=== PATIENT | female | born 1965 | race Caucasian/White ===

== ENCOUNTER → 2018-05-12 | Day surgery (SDC) | payer BC ==
[~2018-05-12] MED LIST: Lactated Ringers 1,000 ML IV SCH; Propofol 200 MG/20 ML SDV IV ONE
[2018-05-12 10:25] VITALS: BP 115/77
--- NOTE | 2018-05-12 10:52 | OR ---
DATE OF OPERATION: 05/12/2018 PREOPERATIVE DIAGNOSIS: CHRONIC GASTROESOPHAGEAL REFLUX DISEASE WITH GLOBUS SENSATION. POSTOPERATIVE DIAGNOSIS: CHRONIC GASTROESOPHAGEAL REFLUX DISEASE WITH GLOBUS SENSATION. SURGEON: Mata Ocasio MD PROCEDURE: ESOPHAGOGASTRODUODENOSCOPY WITH BIOPSIES X5, PEMA. ANESTHESIA: [employer] due to chronic GERD. COMPLICATIONS: None. SPECIMEN: 1. Fundal biopsy x2. 2. Fundal polyp. 3. PEMA. 4. Distal esophageal biopsy x2. FINDINGS: 1. Full-length EGD. 2. Status post gastric bypass with Pj-en-Y. 3. Benign adenomatous fundal polyps. 4. Chronic active gastritis, fundus. 5. GERD with short-segment Low's changes without obvious esophagitis. RECOMMENDATIONS: The patient will be placed on proton pump therapy and monitored pending path reports. INDICATIONS: The patient has apparently been having some ongoing issues with reflux not controlled and now having a globus sensation in her throat. Ronel sent her for EGD. DESCRIPTION OF PROCEDURE: The patient was prepped and draped, placed in the left lateral decubitus position. A lubricated Olympus gastroscope was inserted over a bit and easily intubated in the esophagus. Esophageal lining was benign until its most distal portion. At around 38 cm, Z-line was clean and sharp. There was 1 small short segment of Low's which was biopsied x2. There was no sign of any active esophagitis, ulceration, or bleeding. No gross or large hernia present. The scope was intubated into the stomach which shows changes of antrectomy from a bypass with a Pj-en-Y. The anastomosis looks excellent. The fundus shows what appears to be chronic active gastritis. Two biopsies were taken along with a CLOtest. There was a small little cluster of 3 small adenomatous polyps. The larger of the 3 was biopsied. Retroflexion was possible, and I do not see any gross abnormalities up around the cardia portion of the stomach. Air was suctioned from the stomach. The scope was removed without complication. MARLENE/SERAFIN /[id number]
[2018-05-12 13:00] LABS: CHLORIDE,CL 105 mEq/L (98-106); SODIUM,NA 141 mEq/L (136-145)
== END ==
LOC: CC.SDS 08:09
PROVIDERS: ATTEND Family Medicine
DX: K21.9 Gastro-esophageal reflux disease without esophagitis (principal); K20.9 Esophagitis, unspecified; K22.70 Barrett's esophagus without dysplasia; D13.1 Benign neoplasm of stomach; K29.50 Unspecified chronic gastritis without bleeding; F32.9 Major depressive disorder, single episode, unspecified; M85.80 Other specified disorders of bone density and structure, unspecified site; D51.0 Vitamin B12 deficiency anemia due to intrinsic factor deficiency; G47.30 Sleep apnea, unspecified; J01.90 Acute sinusitis, unspecified; Z88.6 Allergy status to analgesic agent; Z88.8 Allergy status to other drugs, medicaments and biological substances; Z79.82 Long term (current) use of aspirin; Z79.899 Other long term (current) drug therapy
CPT/HCPCS: 36415; 43239; 80053; 80061; 84443; 85025; 87081; J2704; J7120

== ENCOUNTER 2025-01-19 18:03 | Emergency (ER) | payer OTHER ==
[2025-01-19] MEDS: fentaNYL 50 MCG/ML SDV IVPUSH ONE (18:19)
[2025-01-19 18:25] LABS: BASOPHILS ABSOLUTE AUTO 0.06 10^3/uL (0.00-0.50); BASOPHILS PERCENT AUTO 0.6 % (0-1); EOSINOPHILS ABSOLUTE AUTO 0.09 10^3/uL (0.00-1.50); EOSINOPHILS PERCENT AUTO 0.9 % (0-6); IMMATURE GRAN ABSOLUTE AUTO 0.02 10^3/uL (0.00-0.49); IMMATURE GRAN PERCENT AUTO 0.2 % (0.0-4.9); LYMPHOCYTES ABSOLUTE AUTO 2.02 10^3/uL (0.60-5.00); LYMPHOCYTES PERCENT AUTO 20.1 % (24-44); MONOCYTES ABSOLUTE AUTO 1.09 10^3/uL (0.00-1.50); MONOCYTES PERCENT AUTO 10.8 % (0-10); NEUTROPHILS ABSOLUTE AUTO 6.79 x10^3/uL (1.80-8.00); NEUTROPHILS PERCENT AUTO 67.4 % (41-71); PLATELET COUNT,PLT 335 10^3/uL (150-400); RED BLOOD CELL COUNT 4.22 x10^6/uL (4.00-5.50); WHITE BLOOD CELL COUNT,WBC 10.1 10^3/uL (4.0-11.0)
[2025-01-19] MEDS: Ketorolac 30 MG/ML SDV IVPUSH ONE (18:40)
[2025-01-19 18:41] LABS: ALANINE AMINOTRANSFERASE,ALT 31 U/L (12-78); ASPARTATE AMNIOTRANSFERASE,AST 18 U/L (15-37); BILIRUBIN TOTAL 0.3 mg/dL (0.0-1.0); BLOOD UREA NITROGEN,BUN 13 mg/dL (7-18); CARBON DIOXIDE,CO2 24 mmol/L (21-32); CHLORIDE,CL 100 mEq/L (98-106); CREATININE 0.6 mg/dL (0.6-1.0); EST CRCL DRUG DOSING (CG) 103.10 mL/min; ESTIMATED GFR 104 mL/min (>=60); GLUCOSE RANDOM 88 mg/dL (75-99); POTASSIUM,K 4.2 mEq/L (3.5-5.0); PROTEIN TOTAL,TP 7.7 g/dL (6.4-8.2); SODIUM,NA 137 mEq/L (136-145)
[2025-01-19 18:47] LABS: INR 0.98 (0.92-1.18); PTT,PARTIAL THROMBOPLSTIN TIME 25.9 SEC (20.0-30.0)
[2025-01-19 20:29] VITALS: PULSE 71
[2025-01-19] MEDS: methylPREDNISolone Sodium Succinate 125 MG/2 ML SDV IVPUSH STA (20:29)
[2025-01-19] MEDS: Take Home: Acetaminophen/HYDROcodone 325-5 MG, 2 Tab Pack PO ONE (20:30)
[2025-01-19] MEDS: Take Home: Cyclobenzaprine 10 MG Tab, 4 Tab Pack PO ONE (20:33)
[2025-01-19] MEDS: Take Home: predniSONE 20 MG, 4 Tab Pack PO ONE (20:33)
[2025-01-19 21:05] VITALS: BP 122/68
== END 2025-01-19 21:01 | disposition home or self-care (01) ==
LOC: CC.ED 18:03
DX: R07.89 Other chest pain (principal); K21.9 Gastro-esophageal reflux disease without esophagitis; Z88.5 Allergy status to narcotic agent; Z88.8 Allergy status to other drugs, medicaments and biological substances; Z79.899 Other long term (current) drug therapy; Z87.891 Personal history of nicotine dependence
CPT/HCPCS: 36415; 71045; 80053; 84484; 85025; 85610; 85730; 86140; 93005; 96374; 96375; 99285-25; A9270-GY; J1171; J1885; J2919; J3010; J3360